=== PATIENT | male | born 1965 | race Caucasian/White ===

== ENCOUNTER 2018-09-22 17:07 | Emergency (ER) | payer OTHER ==
[~2018-09-22] VITALS: Ht 162.6 cm; Wt 81.7 kg
[2018-09-22 17:40] LABS: ABSOLUTE BASOPHILS 0.1 thou/uL (0.0-0.2); ABSOLUTE EOSINOPHILS 0.1 thou/uL (0.0-0.7); ABSOLUTE LYMPHOCYTES 3.6 thou/uL (0.8-5.3); ABSOLUTE MONOCYTES 0.8 thou/uL (0.0-1.2); ABSOLUTE NEUTROPHILS 5.2 thou/uL (1.6-8.1); BASOPHILS 0.6 %; EOSINOPHILS 0.5 %; HEMATOCRIT 48.1 % (42.0-52.0); HEMOGLOBIN 16.8 gm/dL (14.0-18.0); LYMPHOCYTES 36.8 %; MCHC 34.9 g/dL (28.0-37.0); MCV 88.7 fL (80.0-100.0); MONOCYTES 8.6 %; MPV 8.9 fl. (7.2-11.1); NUCLEATED RBCS 0 /100WBC; PLATELET COUNT* 260 thou/uL (150-400); POLYS 53.5 %; RBC 5.42 mil/uL (4.50-6.00); RDW-CV 13.3 % (10.5-14.5); WBC 9.7 thou/uL (4.0-11.0)
[2018-09-22 17:47] LABS: ANION GAP 7 mmol/L (7-16); BUN 17 mg/dL (7-18); CALCIUM 8.9 mg/dL (8.5-10.1); CHLORIDE 103 mmol/L (98-107); CO2 29 mmol/L (21-32); CREATININE 1.1 mg/dL (0.6-1.3); GLUCOSE 113 mg/dL (70-99); POTASSIUM 3.2 mmol/L (3.5-5.1); SODIUM 139 mmol/L (136-145)
[2018-09-22 17:50] LABS: APTT 30.1 Seconds (25.0-31.3); INR 1.1; PROTIME 10.9 Seconds (9.20-11.50)
[2018-09-22 17:58] LABS: ALBUMIN 3.7 g/dL (3.4-5.0); ALKALINE PHOSPHATASE 71 U/L (46-116); NT-PRO BRAIN NAT PEPTIDE 13 pg/mL (<300); SGPT 28 U/L (30-65); TOTAL BILIRUBIN 0.2 mg/dL (<0.1-1.0); TOTAL PROTEIN 7.6 g/dL (6.4-8.2); TROPONIN-I LEVEL <0.06 ng/mL (<0.06)
[2018-09-22 18:36] LABS: SGOT 20 U/L (15-37)
[2018-09-22 20:26] VITALS: BP 122/78
--- NOTE | 2018-09-24 13:41 | EKG ---
[place] [address] ELECTROCARDIOGRAM REPORT Name: BENJAMIN HONG [id number] Admission: 09/22/18 Attend Phys: Discharge: 09/22/18 Date of : 69 Report #: [id number] THIS REPORT FOR: //name// [facility] ED Test Date: 2018-09-22 Test Time: 17:31:31 Pat Name: BENJAMIN FISHERIO Department: Room: Gender: M Nursing Support Worker: HORTENCIA : 1965 Requested By: Merrill Isaacs Order Number: [id number] MD: Dwayne Arreaga Measurements Intervals [place] Rate: 86 P: 51 DC: 149 QRS: -24 QRSD: 95 T: 13 QT: 337 QTc: 403 Interpretive Statements Sinus rhythm Borderline left axis deviation ST elev, probable normal early repol pattern No previous ECG available for comparison Electronically Signed On 09-24-2018 13:40:49 ROOFER ASSISTANT by Dwayne Arreaga [email or web address] <ELECTRONICALLY SIGNED> By: Dwayne Arreaga MD, [facility] 09/24/18 1340 1731 1731 Dwayne Arreaga MD, FACC /EPI
== END 2018-09-22 20:27 | disposition home or self-care (01) ==
LOC: M.ERS 17:07
PROVIDERS: Emergency Medicine Emergency Medical Services
DX: J06.9 Acute upper respiratory infection, unspecified (principal)